=== PATIENT | female | born 1995 | race Caucasian/White ===

== ENCOUNTER 2023-03-16 09:29 | Inpatient (IN) | payer OTHER ==
[~2023-03-16] VITALS: Ht 160 cm; Wt 113.4 kg
[2023-03-16] MEDS ORDERED: OXYTOCIN 10 UNITS/ML VIAL IM SCH (20:10)
[2023-03-16] MEDS ORDERED: LACTATED RINGERS 500 ML IV ONE (20:10)
[2023-03-16] MEDS ORDERED: METHYLERGONOVINE 0.2 MG/ML AMP IM PRN (20:10)
[2023-03-16] MEDS ORDERED: CARBOPROST 250 MCG/ML AMP IM PRN (20:10)
[2023-03-16 20:34] LABS: BASOPHILS % (AUTO) 0.3 % (0.0-2.0); EOSINOPHILS # (AUTO) 0.1 K/uL (0-0.4); EOSINOPHILS % (AUTO) 1.5 % (0.0-4.0); HEMOGLOBIN 11.2 g/dL (12.0-16.0); LYMPHOCYTES % (AUTO) 29.3 % (20.5-51.1); MEAN CORPUSCULAR HEMOGLOBIN 29 pg (27-31); MEAN CORPUSCULAR HGB CONC 34 g/dL (33-37); MEAN CORPUSCULAR VOLUME 84.2 fL (80-94); MONOCYTES # (AUTO) 0.4 K/uL (0.8-1.0); MONOCYTES % (AUTO) 6.2 % (1.7-9.3); NEUTROPHILS # (AUTO) 4.2 K/uL (1.8-7.7); NEUTROPHILS % (AUTO) 62.7 % (42.2-75.2); PLATELET COUNT (AUTO) 321 K/uL (140-450); RED BLOOD CELL COUNT(AUTO) 3.92 MIL/uL (4.20-5.40); RED CELL DISTRIBUTION WIDTH 14.6 % (11.6-13.7); WHITE BLOOD COUNT (AUTO) 6.7 K/uL (4.8-10.8)
[2023-03-16 20:49] LABS: ALBUMIN 2.4 g/dL (3.4-5.0); CALCIUM 8.7 mg/dL (8.5-10.1); CREATININE 0.5 mg/dL (0.6-1.3); TOTAL BILIRUBIN 0.2 mg/dL (0.0-1.0); TOTAL PROTEIN, SERUM 6.5 g/dL (6.4-8.2)
[2023-03-16 20:53] LABS: INR 0.9 (0.8-1.2); PARTIAL THROMBOPLASTIN TIME 26.3 secs (22-35.6); PROTHROMBIN TIME 9.4 secs (10.8-13.4)
[2023-03-16 21:10] LABS: APPEARANCE,URINE CLEAR (CLEAR); BILIRUBIN,URINE NEGATIVE (NEGATIVE); BLOOD, URINE NEGATIVE (NEGATIVE); COLOR,URINE YELLOW (YELLOW); LEUKOCYTE ESTERASE ,URINE NEGATIVE (NEGATIVE); NITRITE, URINE NEGATIVE (NEGATIVE); PROTEIN,URINE 1+ (NEGATIVE); UGLUCOSE NEGATIVE (NEGATIVE); UROBILINOGEN,URINE 0.2 EU/dL (0.2 - 1)
[2023-03-16 21:22] VITALS: BP 123/74; PULSE 83; RESP 18; TEMP 98.1
[2023-03-16] MEDS: MISOPROSTOL 25 MCG TAB VG SCH (21:32)
[2023-03-16 21:33] LABS: BACTERIA,URINE FEW /HPF (None Seen); MUCUS,URINE None Seen /LPF (None Seen); RBC,URINE 0-5 /HPF (0-5); SQUAMOUS EPITHELIAL CELL,UR 0-3 (FEW) /LPF (0-3 (FEW)); TRICHOMONAS,URINE None Seen /HPF (None Seen); WBC,URINE 0-5 /HPF (0-5); YEAST,URINE None Seen /HPF (None Seen)
[2023-03-17] MEDS: LACTATED RINGERS 1,000 ML IV SCH ×4 (01:45→18:40)
[2023-03-17 05:00] VITALS: O2SAT 96
[2023-03-17] MEDS: MORPHINE SULFATE 10 MG/ML VIAL IVP PRN ×2 (05:00→15:31)
[2023-03-17] MEDS: ONDANSETRON 4 MG/2 ML VIAL IVP PRN ×3 (05:01→21:08)
[2023-03-17] MEDS ORDERED: PREN-543 PO (05:04)
[2023-03-17] MEDS: MISOPROSTOL 25 MCG TAB VG SCH (12:17)
[2023-03-17 15:31] VITALS: BP 160/96; PULSE 72; RESP 19
[2023-03-17] MEDS ORDERED: ROPIVACAINE 0.2%/NS PREMIX 200 ML EPI ONE (17:16)
[2023-03-17 18:36] LABS: URINE TOTAL PROTEIN 16.9 mg/dL (0-12); URINE TPRO CREAT RATIO 0.1 (0-0.20)
[2023-03-18] MEDS: LACTATED RINGERS 1,000 ML IV SCH ×2 (03:11→08:41)
[2023-03-18] MEDS ORDERED: OXYTOCIN 20 UNITS/LR PREMIX 1,000 ML IV ONE (06:58)
[2023-03-18] MEDS ORDERED: TERBUTALINE 1 MG/ML VIAL SUBQ SCH (07:40)
[2023-03-18] MEDS ORDERED: TERBUTALINE 1 MG/ML VIAL SUBQ ONE (07:41)
[2023-03-18] MEDS ORDERED: MEASLES, MUMPS, AND RUBELLA 1 VIAL SQVAC ONE (11:05)
[2023-03-18] MEDS ORDERED: OXYTOCIN 10 UNITS/ML VIAL IM PRN (11:05)
[2023-03-18] MEDS ORDERED: METHYLERGONOVINE 0.2 MG TAB PO PRN (11:05)
[2023-03-18] MEDS ORDERED: BENZOCAINE/MENTHOL 20%-0.5% 60 GM CAN TP PRN (11:05)
[2023-03-18] MEDS ORDERED: METHYLERGONOVINE 0.2 MG/ML AMP IM PRN (11:05)
[2023-03-18] MEDS ORDERED: MEASLES, MUMPS, AND RUBELLA 1 VIAL SQVAC PRN (11:10)
[2023-03-18] MEDS: IBUPROFEN 800 MG TAB PO PRN ×2 (11:13→19:40)
[2023-03-19] MEDS: IBUPROFEN 800 MG TAB PO PRN ×2 (04:38→14:19)
[2023-03-19 06:16] LABS: HEMATOCRIT 26.9 % (36-48); HEMOGLOBIN 9.1 g/dL (12.0-16.0)
== END 2023-03-19 18:00 | disposition home or self-care (01) | DRG 560 ==
LOC: MFCC 19:30 → OBSVTOIN 03-18 12:26
PROVIDERS: ADMIT Obstetrics & Gynecology; ATTEND Obstetrics & Gynecology
PROC: 10E0XZZ Delivery of Products of Conception, External Approach (ICD-10-PCS; principal; 2023-03-18)
PROC: 3E0R3BZ Introduction of Anesthetic Agent into Spinal Canal, Percutaneous Approach (ICD-10-PCS; 2023-03-18)
PROC: 00HU33Z Insertion of Infusion Device into Spinal Canal, Percutaneous Approach (ICD-10-PCS; 2023-03-18)
PROC: 3E033VJ Introduction of Other Hormone into Peripheral Vein, Percutaneous Approach (ICD-10-PCS; 2023-03-18)
DX: O40.3XX0 Polyhydramnios, third trimester, not applicable or unspecified (principal); Z37.0 Single live birth; O77.0 Labor and delivery complicated by meconium in amniotic fluid; Z20.822 Contact with and (suspected) exposure to COVID-19; Z3A.38 38 weeks gestation of pregnancy
CPT/HCPCS: G0378 ×29; 36415; 51702; 59200; 59409; 76815; 80053; 81001; 82570; 85018; 85025; 85610; 85730; 86592; 86886; 86900; 86901; J2270; J2405; J2590; J2795; J3105; Q0092